=== PATIENT | male | born 1995 | race Caucasian/White ===

== ENCOUNTER 2017-07-26 02:38 | Emergency (ER) | payer OTHER ==
--- NOTE | 2017-07-26 02:42 | ER Report ---
History and Physical Time Seen By MD: 02:41 HPI/ROS CHIEF COMPLAINT: Head injury, intoxicated HISTORY OF PRESENT ILLNESS: 21-year-old male presents ambulatory by private auto to the ER for evaluation of head injury. EMS responded to the scene and evaluated the patient. He has a scalp contusion and a small laceration in the left occipital parietal area. Patient denies neck pain. Patient denies vomiting. Patient denies visual changes. Patient is to heavy alcohol ingestion tonight prior to his fall. Patient states his last tetanus shots up- to-date from one year ago. Patient's complaining of bilateral jaw pain when he opens his mouth. He notes a throbbing headache 09/24. REVIEW OF SYSTEMS: Respiratory: No cough, no dyspnea. Cardiovascular: No chest pain, no palpitations. Gastrointestinal: No vomiting, no abdominal pain. Musculoskeletal: No back pain. Allergies: Coded Allergies: Fish Containing Products (Verified Allergy, Severe, anaphalxsis, 07/26/17) legumes (Verified Allergy, Severe, anaphlaxsis, 07/26/17) Home Meds No Active Prescriptions or Reported Meds Past Medical/Surgical History Unremarkable Reviewed Nurses Notes: Yes Old Medical Records Reviewed: Yes Constitutional Vital Sign - Last 24 Hours 07/26/17 07/26/17 02:45 04:48 Temp 98.0 Pulse 118 112 Resp 16 16 B/P (MAP) 145/68 135/73 (93) Pulse Ox 93 94 O2 Delivery Room Air Room Air Physical Exam General Appearance: The patient is alert, has no immediate need for airway protection and no signs of toxicity. Palpation of the head reveals a fairly large hematoma in the left occipital parietal region. Proximally, 4 cm. There is a linear laceration vertically through the hematoma. There is some abrasion of the hair from the central area. Eyes: Pupils equal and round no pallor or injection, TMs are normal, facial bones are intact on palpation ENT, Mouth: Mucous membranes are moist. There is no dental trauma. On examination of the oropharynx Respiratory: There are no retractions, lungs are clear to auscultation. Cardiovascular: Regular rate and rhythm. Gastrointestinal: Abdomen is soft and non tender, no masses, bowel sounds normal. 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 Musculoskeletal: Neck is supple non tender. Extremities are nontender, nonswollen and have full range of motion. No evidence of trauma DIFFERENTIAL DIAGNOSIS: After history and physical exam differential diagnosis was considered for head injury including but not limited to concussion, skull fracture, intraparenchymal contusion, subarachnoid, subdural and epidural hematoma. Medical Decision Making EKG/Imaging Imaging Results: CT scan of the head was obtained. The results of the study are CT Head without contrast Indication: Fall, head injury, intoxicated. Comparison: None available. Technique: Axial CT images were obtained through the brain from the skull base to the vertex without administration of IV contrast. One of the following dose optimization techniques was utilized in the performance of this exam: Automated exposure control; adjustment of the mA and/or kV according to the patient's size ; or use of an iterative reconstruction technique. Specific details can be referenced in the facility's radiology CT exam operational policy. Findings: Posterior scalp laceration/contusion with possible 2 mm superficial radiopaque foreign body. No fracture. No evidence of mass, mass effect, or midline shift. No acute intracranial hemorrhage or acute territorial infarction. Globes and orbits are normal. [id number] mucosal thickening in the paranasal sinuses with sparing of the frontal sinuses. IMPRESSION: 1. No acute intracranial abnormality. 2. Posterior scalp laceration/contusion with possible 2 mm superficial foreign body. The study was read by the radiologist. I viewed the images myself on the PACS system. ED Course/Re-evaluation ED Course Patient was admitted to an examination room. H&P was done. The differential diagnoses was considered. On clinical examination. Patient has a large scalp contusion and laceration. He has a nonfocal neurologic examination. He obviously appears intoxicated. His tetanus status is verified. Sent for head CT, which is unremarkable for intracranial injury. Patient's laceration is repaired as noted below. Wound care was discussed, staple removal will be in 10 days. Head injury precautions were reviewed. Procedure: Laceration repair. Verbal consent was obtained from the patient. The 2.0 cm vertical laceration on the left occipital parietal scalp was anesthetized in the usual fashion. The wound was scrubbed, draped and explored to its base with a gloved finger. There were no deep structures involved. The wound was repaired with fiona 5. The wound repair was simple . The procedure was performed by myself. Decision to Disposition Date: July 26, 2017 Decision to Disposition Time: 03:39 Depart Departure Latest Vital Signs Vital Signs Date Time Temp Pulse Resp B/P (MAP) Pulse Ox O2 Delivery O2 Flow Rate FiO2 07/26/17 04:48 112 16 135/73 (93) 94 Room Air 07/26/17 02:45 98.0 Impression: Primary Impression: Head injury Additional Impressions: Scalp laceration Scalp contusion Condition: Improved Disposition: HOME OR SELF-CARE New Scripts No Active Prescriptions or Reported Meds Patient Instructions: Head Injury (ED), Laceration (ED) Additional Instructions: Take ibuprofen for pain relief Have your fiona removed in 10 days Problem Qualifiers Primary Impression: Head injury Encounter type: initial encounter Qualified Codes: S09.90XA - Unspecified injury of head, initial encounter Additional Impressions: Scalp laceration Encounter type: initial encounter Qualified Codes: S01.01XA - Laceration without foreign body of scalp, initial encounter Scalp contusion Encounter type: initial encounter Qualified Codes: S00.03XA - Contusion of scalp, initial encounter VICTORIA GALARZA DO July 26, 2017 02:42
--- NOTE | 2017-07-26 03:39 | RADIOLOGY IMAGING REPORT ---
FACILITY: [facility] - [place] PATIENT NAME: Dragan Mari : 1995 MR: [id number] V: [id number] EXAM DATE: ORDERING PHYSICIAN: VICTORIA GALARZA TECHNOLOGIST: Location: [facility] Patient: Dragan Mari : 1995 Visit/Account:[id number] Date of Sevice: 07/26/2017 CT Head without contrast Indication: Fall, head injury, intoxicated. Comparison: None available. Technique: Axial CT images were obtained through the brain from the skull base to the vertex without administration of IV contrast. One of the following dose optimization techniques was utilized in th e performance of this exam: Automated exposure control; adjustment of the mA and/or kV according to t he patient's size; or use of an iterative reconstruction technique. Specific details can be referen ksenia in the facility's radiology CT exam operational policy. Findings: Posterior scalp laceration/contusion with possible 2 mm superficial radiopaque foreign body. No fracture. No evidence of mass, mass effect, or midline shift. No acute intracranial hemorrhage or acute territorial infarction. Globes and orbits are normal. [id number]-ul-bemdkrhx mucosal thickening in the paranasal sinuses with sparing of the frontal sinuses. IMPRESSION: 1. No acute intracranial abnormality. 2. Posterior scalp laceration/contusion with possible 2 mm superficial foreign body. Report Dictated By: Ross Garvey MD at 07/26/2017 3:29 AM Report E-Signed By: Ross Garvey MD at 07/26/2017 3:33 AM WSN:[id number]
[2017-07-26 04:48] VITALS: BP 135/73
== END 2017-07-26 04:30 | disposition home or self-care (01) ==
LOC: ER 03:53
DX: S09.90XA Unspecified injury of head, initial encounter (principal); S01.01XA Laceration without foreign body of scalp, initial encounter; S00.03XA Contusion of scalp, initial encounter
CPT/HCPCS: 70450; 99283